=== PATIENT | male | born 1980 | race Caucasian/White ===

== ENCOUNTER 2017-04-09 17:38 | Inpatient (IN) | payer MEDICARE, OTHER ==
[~2017-04-09] VITALS: Ht 175.3 cm; Wt 81.0 kg
[~2017-04-09 17:38] MED LIST: HYDR-1666; LORA-408; PERCOCET
[2017-04-09] MEDS ORDERED: LEVETIRACETAM 1000 MG (PMX) 100 ML IVPB STA (17:46)
[2017-04-09] MEDS ORDERED: SOD CHLORIDE 0.9% 1,000 ML IV STA (17:46)
[2017-04-09] MEDS ORDERED: ONDANSETRON 4 MG INJ IV STA (17:46)
[2017-04-09 18:02] LABS: ADD SCAN DIFF NO
[2017-04-09 18:03] LABS: BASOPHILS % 0.2 % (0.0-2.0); EOSINOPHILS # 0.1 10^3/ul (0.0-0.5); EOSINOPHILS % 2.1 % (0.0-7.0); HEMATOCRIT 41.5 % (42.0-52.0); HEMOGLOBIN 14.7 g/dl (14.0-18.0); LYMPHOCYTES # 1.5 10^3/ul (0.8-2.9); LYMPHOCYTES % 28.3 % (15.0-51.0); MEAN CORPUSCULAR HGB CONC 35.4 g/dl (32.0-37.0); MEAN CORPUSCULAR VOLUME 87.6 fl (82.0-101.0); MEAN PLATELET VOLUME 10.5 fl (7.4-10.4); MONOCYTE # 0.5 10^3/ul (0.3-0.9); NEUTROPHIL # 3.1 10^3/ul (1.6-7.5); PLATELET COUNT 153 10^3/UL (140-415); RED BLOOD COUNT 4.74 10^6/ul (4.70-6.10); RED CELL DISTRIBUTION WIDTH 11.8 % (11.5-14.5); WHITE BLOOD COUNT 5.1 10^3/ul (4.8-10.8)
[2017-04-09 18:22] LABS: CALCIUM 9.4 mg/dl (8.4-10.2); CREATININE 0.88 mg/dl (0.61-1.24); POTASSIUM 3.8 mmol/L (3.5-5.1)
[2017-04-09] MEDS ORDERED: LACO150T2 PO (18:38)
[2017-04-09] MEDS ORDERED: SERT-165 PO (18:38)
[2017-04-09] MEDS ORDERED: SERT50TA PO (18:39)
[2017-04-09] MEDS ORDERED: METO50TA16 PO (18:39)
[2017-04-09] MEDS ORDERED: DIVA250T4 PO (18:40)
[2017-04-09] MEDS ORDERED: TRAZ100T15 PO (18:50)
--- NOTE | 2017-04-09 20:21 | ERA ---
ER Documentation Chief Complaint Date/Time DATE: 04/09/17 TIME: 20:20 Chief Complaint seizures x 3 (10 sec's each), hx absent seizures HPI This 28-year-old male brought in by paramedics for a witnessed seizure on [employer] van, which provides free medical transportation for qualified individuals. This seizure was reported shaking. Patient has a history of absence seizures. He is on Vimpat. Paramedics administered 2 doses of Versed to try to stop the seizures as he then sees to 3 times in their presence. He is currently postictal and not able to provide his own history. History to this point has been taken from paramedics. ROS Unable to provide history. Medications Home Meds Reported Medications Trazodone Hcl* (Trazodone Hcl*) 100 Mg Tablet, 200 MG PO QHS, #30 TAB 04/09/17 Divalproex Sodium* (Depakote ER*) 250 Mg Tabsr, 250 MG PO QHS, #30 TAB.SA 04/09/17 Metoprolol Succinate* (Toprol XL*) 50 Mg Tab.er.24h, 50 MG PO DAILY, #30 TAB 04/09/17 Lacosamide (Vimpat) 150 Mg Tablet, 150 MG PO BID, TAB 04/09/17 Sertraline Hcl* (Sertraline Hcl*) 100 Mg Tablet, 200 MG PO DAILY, #60 TAB 04/09/17 Discontinued Reported Medications Sertraline Hcl* (Zoloft*) 50 Mg Tablet, 50 MG PO DAILY, #30 TAB 04/09/17 Lorazepam (Ativan) 1 Mg Tablet 06/13/10 Hydrocodone Bit/Acetaminophen (Vicodin 5/500 Tablet) 1 Tab Tablet 06/13/10 Oxycodone Hcl/Acetaminophen (Percocet) 1 Tab Tab 06/13/10 Allergies Allergies: Coded Allergies: haloperidol (Verified Allergy, Severe, GRAND MAL SEIZURE, 04/09/17) PMhx/Soc History of Surgery: No Anesthesia Reaction: No Hx Neurological Disorder: No Hx Respiratory Disorders: No Hx Cardiac Disorders: No Hx Psychiatric Problems: Yes (DEPRESSION) Hx Miscellaneous Medical Probl: Yes (SEIZURES ) Hx Alcohol Use: No Hx Substance Use: No Hx Tobacco Use: No Smoking Status: Never smoker Physical Exam Vitals Vital Signs Date Time Temp Pulse Resp B/P Pulse Ox O2 Delivery O2 Flow Rate FiO2 04/09/17 19:24 101 18 130/79 99 Nasal Cannula 3.0 04/09/17 17:45 98.1 78 16 127/77 97 Physical Exam Const: [] No obvious distress Head: Atraumatic Eyes: Normal Conjunctiva, apparent EOMI, PERRL ENT: Normal External Ears, Nose and Mouth. Neck: Full range of motion..~ No meningismus. Resp: Clear to auscultation bilaterally Cardio: Regular rate and rhythm, no murmurs Abd: Soft, non tender, non distended. Normal bowel sounds Skin: No petechiae or rashes Back: No midline or flank tenderness Ext: No cyanosis, or edema Neur: Awake and alert, patient is postictal currently unable to cooperate with the neuro exam. He is looking around with no gaze preference to either side.. Result Diagram: 04/09/17175404/09/171754 Results 24 hrs Laboratory Tests Test 04/09/17 17:55 White Blood Count 5.110^3/ul Red Blood Count 4.7410^6/ul Hemoglobin 14.7g/dl Hematocrit 41.5% Mean Corpuscular Volume 87.6fl Mean Corpuscular Hemoglobin 31.0pg Mean Corpuscular Hemoglobin Concent 35.4g/dl Red Cell Distribution Width 11.8% Platelet Count 49483^3/UL Mean Platelet Volume 10.5fl Neutrophils % 60.0% Lymphocytes % 28.3% Monocytes % 9.0% Eosinophils % 2.1% Basophils % 0.2% Nucleated Red Blood Cells % 0.0/100WBC Neutrophils # 3.110^3/ul Lymphocytes # 1.510^3/ul Monocytes # 0.510^3/ul Eosinophils # 0.110^3/ul Basophils # 0.010^3/ul Nucleated Red Blood Cells # 0.010^3/ul Sodium Level 137mmol/L Potassium Level 3.8mmol/L Chloride Level 103mmol/L Carbon Dioxide Level 27mmol/L Anion Gap 11 Blood Urea Nitrogen 14mg/dl Creatinine 0.88mg/dl Glucose Level 89mg/dl Calcium Level 9.4mg/dl Current Medications Medications (Trade) Dose Ordered Sig/Raya Route PRN Reason Start Time Stop Time Status Last Admin Dose Admin Sodium Chloride 1,000 ml @ 1,000 mls/hr Q1H STAT IV 04/09/17 17:46 5/17/17 18:45 DC 04/09/17 18:03 Levetiracetam (Keppra 1,000mg/ 100ml (Pmx)) 100 ml @ 400 mls/hr ONCE STAT IVPB 04/09/17 17:46 04/09/17 18:00 DC 04/09/17 18:43 Ondansetron HCl (Zofran Inj) 4 mg ONCE STAT IV 04/09/17 17:46 04/09/17 17:51 DC 04/09/17 18:03 Ondansetron HCl (Zofran Inj) 4 mg ER BRIDGE PRN IV NAUSEA AND/OR VOMITING 04/09/17 20:30 04/10/17 20:29 Acetaminophen (Tylenol Tab) 650 mg ER BRIDGE PRN PO MILD PAIN/FEVER 04/09/17 20:30 04/10/17 20:29 Procedures/MDM Status epilepticus with multiple seizures requiring 2 doses of benzodiazepines in order to stop the seizures. Patient then had a prolonged postictal period in the emergency room. He was immediately given a loading dose of Keppra 1 g IV. He has not had further seizures in the emergency room I believe is appropriate for telemetry. Because he is having breakthrough seizures with such frequency today I believe he needs to be admitted for the status epilepticus. Paramedics denied any known trauma in the patient later denied trauma. He was postictal for approximately 2 hours and was intermittently able to answer questions. When he awoke he exhibited drug-seeking behavior and saying that he needs Dilaudid for a headache that he has. He has asked multiple times for Dilaudid. I did provide him with IV diclofenac which did help with his headache. No sign of intracranial injury. No signs of infections that would lower seizure threshold. Spoke with . his son who admitting the patient to telemetry with seizure precautions. CT head interpretation: I see no acute process, no hemorrhage no mass-effect no midline shift, no skull fracture Departure Diagnosis: Primary Impression: Status epilepticus Additional Impressions: Postictal state Breakthrough seizure Condition: Stable LYLECLAIREJESUS DO April 09, 2017 20:21
[2017-04-09] MEDS ORDERED: ACETAMINOPHEN 325 MG TAB PO PRN (20:30)
[2017-04-09] MEDS ORDERED: ONDANSETRON 4 MG INJ IV PRN ×2 (20:30→23:00)
--- NOTE | 2017-04-09 20:35 | RADRPT ---
PROCEDURE: CT Head without. CLINICAL INDICATION: Seizure. TECHNIQUE: The study was performed utilizing a multi-slice, multidetector CT scanner. Direct spira l 1 mm axial sections were obtained through the head without the use of intravenous contrast materia l. 1 or more of the following dose reduction techniques were utilized: Automated exposure control, adjustment of the mA and/or kV according to patient's size, iterative reconstruction technique. Co freddy and sagittal reformations were obtained. The images were reviewed on a PACS workstation. RADIATION DOSE: CTDIvol: 45.0 mGyDLP: 720.2 mGy-cm COMPARISON: No prior studies are available for comparison. FINDINGS: There is no intracranial hemorrhage, extra-axial fluid collection, mass lesion, midline shift or hyd rocephalus. The ventricles, sulci and cisterns are within normal limits. 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 The white matter is unremarkable. The bustamante-white matter differentiation is preserved. The basal cisterns are patent. The midline structures are intact. The orbits, calvarium and extracranial soft tissues are normal in appearance. There is fluid opacifi cation of the bilateral mastoid air cells and middle ear cavities, with poorly pneumatized mastoid a ir cells bilaterally. IMPRESSION: 1. No acute intracranial abnormality. No intracranial hemorrhage, extra-axial fluid collection, ma ss lesion or hydrocephalous. RPTAT: HGAS .Matt Gallego MD, Date Time Electronically viewed and signed by .Matt Gallego MD, on 04/09/2017 20:34 .S/
[2017-04-09] MEDS ORDERED: DICLOFENAC SODIUM 37.5 MG/ML VIAL IV STA (20:49)
[2017-04-09 21:14] LABS: ADD UMIC NO; URINE BILIRUBIN (Dip) NEGATIVE (NEGATIVE); URINE BLOOD (Dip) NEGATIVE (NEGATIVE); URINE COLOR LT. YELLOW (YELLOW); URINE GLUCOSE (Dip) NEGATIVE (NEGATIVE); URINE KETONES (Dip) NEGATIVE (NEGATIVE); URINE LEUKOCYTE ESTERASE (Dip) NEGATIVE (NEGATIVE); URINE NITRITE (Dip) NEGATIVE (NEGATIVE); URINE TOTAL PROTEIN (Dip) NEGATIVE (NEGATIVE); URINE UROBILINOGEN (Dip) 0.2 E.U./dL (0.1-1.0)
[2017-04-09] MEDS ORDERED: DIPHENHYDRAMINE 50 MG INJ IM ONE (22:00)
[2017-04-09] MEDS ORDERED: OLANZAPINE 5 MG TAB PO ONE (22:30)
[2017-04-09] MEDS ORDERED: KETOROLAC 15 MG INJ IV PRN (23:00)
[2017-04-09] MEDS ORDERED: BISACODYL (EC) 5 MG TAB PO PRN (23:00)
[2017-04-09] MEDS ORDERED: DOCUSATE SODIUM 100 MG CAP PO PRN (23:00)
[2017-04-09] MEDS ORDERED: NACL 0.9% 3 ML SYG IV SCH (23:00)
[2017-04-09] MEDS: SOD CHLORIDE 0.9% 1,000 ML IV SCH (23:27)
[2017-04-09 23:51] VITALS: BP 110/65; RESP 18
[2017-04-10] VITALS (11 sets, daily range): BP systolic 94–123; BP diastolic 53–68; PULSE 55–73; RESP 18–20; Ht 175.3 cm; Wt 81.0 kg
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
[2017-04-10] MEDS: LEVETIRACETAM 500 MG TAB PO SCH ×3 (01:37→21:26)
[2017-04-10] MEDS: FAMOTIDINE 20 MG TAB PO SCH ×3 (01:37→21:26)
[2017-04-10] MEDS: LACOSAMIDE (100 MG/10 ML PO SYR) PO SCH ×3 (01:38→23:28)
[2017-04-10] MEDS: ACETAMINOPHEN 325 MG TAB PO PRN (01:38)
[2017-04-10 04:58] LABS: BARBITURATES NEGATIVE (NEGATIVE); BENZODIAZEPINES POSITIVE (NEGATIVE); CANNABINOIDS NEGATIVE (NEGATIVE); COCAINE NEGATIVE (NEGATIVE)
[2017-04-10 04:59] LABS: OPIATES NEGATIVE (NEGATIVE)
[2017-04-10 07:32] LABS: ADD SCAN DIFF NO
[2017-04-10 07:38] LABS: BASOPHILS % 0.5 % (0.0-2.0); EOSINOPHILS # 0.1 10^3/ul (0.0-0.5); EOSINOPHILS % 3.5 % (0.0-7.0); HEMATOCRIT 37.8 % (42.0-52.0); HEMOGLOBIN 12.6 g/dl (14.0-18.0); LYMPHOCYTES # 1.6 10^3/ul (0.8-2.9); LYMPHOCYTES % 40.8 % (15.0-51.0); MEAN CORPUSCULAR HEMOGLOBIN 30.2 pg (29.0-33.0); MEAN CORPUSCULAR HGB CONC 33.3 g/dl (32.0-37.0); MEAN CORPUSCULAR VOLUME 90.6 fl (82.0-101.0); MEAN PLATELET VOLUME 10.8 fl (7.4-10.4); MONOCYTE # 0.5 10^3/ul (0.3-0.9); MONOCYTES % 11.8 % (0.0-11.0); NEUTROPHIL # 1.7 10^3/ul (1.6-7.5); NEUTROPHILS % 43.1 % (39.0-77.0); PLATELET COUNT 142 10^3/UL (140-415); RED BLOOD COUNT 4.17 10^6/ul (4.70-6.10); RED CELL DISTRIBUTION WIDTH 12.1 % (11.5-14.5)
[2017-04-10 08:05] LABS: POTASSIUM 3.7 mmol/L (3.5-5.1)
[2017-04-10 08:07] LABS: BILIRUBIN,INDIRECT 0.2 mg/dl (0-1.1); BILIRUBIN,TOTAL 0.2 mg/dl (0.2-1.3); CREATININE 0.73 mg/dl (0.61-1.24)
[2017-04-10 08:08] LABS: ALBUMIN/GLOBULIN RATIO 1.25; CALCIUM 8.3 mg/dl (8.4-10.2); TOTAL PROTEIN 5.4 g/dl (6.1-8.1)
[2017-04-10] MEDS: METOPROLOL (XL) 50 MG TAB PO SCH (09:00)
[2017-04-10] MEDS: SERTRALINE 100 MG TAB PO SCH (09:16)
[2017-04-10] MEDS: LORAZEPAM 2 MG INJ IV PRN (11:21)
--- NOTE | 2017-04-10 15:22 | CONS ---
Date/Time of Note Date/Time of Note DATE: 04/10/17 TIME: 15:18 Assessment/Plan Assessment/Plan Chief Complaint/Hosp Course 36 year old male with reported history of seizures on 3 AED admitted w breakthrough seizures. -MRI Brain w/o contrast ordered -Routine EEG -resumed on AED will follow up with above testing and adjust medications as needed seizure precautions low dose ativan prn Problems: Consultation Date/Type/Reason Admit Date/Time 04/10/17 Date of Consultation: April 10, 2017 Type of Consultation: Neurology Reason for Consultation seizures Referring Provider: SUZY AYALA Hx of Present Illness 28 year old male with history of reported seizures on Depakote, Keppra, and Vimpat brought in for witnessed seizure while on [employer] van. He was given 2 doses of Versed and had 3 further seizures. He is unable to provide any hx regarding his seizures, complains of pain and headache requesting pain meds. He reports he is complaint with all meds, was restarted on Keppra 500 mg q12h, Vimpat 150 mg BID, Depakote 250 mg qhs. CTH is negative. MRI Brain and EEG pending. headaches Social History Alcohol Use: other (Previous drinker about 6 months ago) Smoking Status: Current every day smoker (1-2 cigarettes a day) Exam/Review of Systems Vital Signs Vitals Vital Signs Date Time Temp Pulse Resp B/P Pulse Ox O2 Delivery O2 Flow Rate FiO2 04/10/17 12:30 69 04/10/17 11:23 98.2 20 113/68 97 04/10/17 09:50 Nasal Cannula 2.0 Exam developmentally delayed slow to respond oriented to self, hospital, date no aphasia CN: NEVILLE, left eyelid w slight ptosis, no other sig. facial asymmetry palate upgoing uvula midline scm/trap intact while speaking with patient he reported he was having a seizure no gaze deviation or focal twitching or weakness observed Motor: lifts all extremities anti-gravity with full strength Coordination: no ataxia Reflexes 1+ throughout Results Result Diagram: 04/10/17 0643 04/10/17 0643 Results 24 hrs Laboratory Tests Test 04/09/17 17:55 04/09/17 20:30 04/10/17 02:20 04/10/17 06:43 White Blood Count 5.1 4.0 #L Red Blood Count 4.74 4.17 L Hemoglobin 14.7 12.6 L Hematocrit 41.5 L 37.8 L Mean Corpuscular Volume 87.6 90.6 Mean Corpuscular Hemoglobin 31.0 30.2 Mean Corpuscular Hemoglobin Concent 35.4 33.3 Red Cell Distribution Width 11.8 12.1 Platelet Count 153 142 Mean Platelet Volume 10.5 H 10.8 H Neutrophils % 60.0 43.1 Lymphocytes % 28.3 40.8 Monocytes % 9.0 11.8 H Eosinophils % 2.1 3.5 Basophils % 0.2 0.5 Nucleated Red Blood Cells % 0.0 0.0 Neutrophils # 3.1 1.7 Lymphocytes # 1.5 1.6 Monocytes # 0.5 0.5 Eosinophils # 0.1 0.1 Basophils # 0.0 0.0 Nucleated Red Blood Cells # 0.0 0.0 Sodium Level 137 142 Potassium Level 3.8 3.7 Chloride Level 103 107 Carbon Dioxide Level 27 26 Anion Gap 11 13 Blood Urea Nitrogen 14 12 Creatinine 0.88 0.73 Glucose Level 89 74 Calcium Level 9.4 8.3 L Urine Color LT. YELLOW Urine Clarity CLEAR Urine pH 6.0 Urine Specific [place] <=1.005 L Urine Ketones NEGATIVE Urine Nitrite NEGATIVE Urine Bilirubin NEGATIVE Urine Urobilinogen 0.2 E.U./dL Urine Leukocyte Esterase NEGATIVE Urine Hemoglobin NEGATIVE Urine Glucose NEGATIVE Urine Total Protein NEGATIVE Urine Opiates Screen NEGATIVE Urine Barbiturates NEGATIVE Urine Amphetamines Screen NEGATIVE Urine Benzodiazepines Screen POSITIVE Urine Cocaine Screen NEGATIVE Urine Cannabinoids NEGATIVE Magnesium Level 2.0 Total Bilirubin 0.2 Direct Bilirubin 0.00 Indirect Bilirubin 0.2 Aspartate Amino Transf (AST/SGOT) 20 Alanine Aminotransferase (ALT/SGPT) 30 Alkaline Phosphatase 30 L Total Protein 5.4 L Albumin 3.0 L Globulin 2.40 Albumin/Globulin Ratio 1.25 Valproic Acid (Depakene) Level < 10 L Medications Medications Current Medications Sodium Chloride (NS) 1,000 ml @ 50 mls/hr Q20H IV Last administered on 23:27; Admin Dose 50 MLS/HR; Start 04/09/17 at 22:49 Lorazepam (Ativan) 0.5 mg Q6H PRN IV ANXIETY Last administered on 04/10/17 11: 21; Admin Dose 0.5 MG; Start 04/09/17 at 23:00 Ondansetron HCl (Zofran Inj) 4 mg Q6H PRN IV NAUSEA AND/OR VOMITING; Start at 23:00 Acetaminophen (Tylenol Tab) 650 mg Q6H PRN PO PAIN LEVEL 1-3 OR FEVER Last administered on 04/10/17 01:38; Admin Dose 650 MG; Start 04/09/17 at 23:00 Docusate Sodium (Colace) 100 mg Q12H PRN PO CONSTIPATION; Start 04/09/17 at 23: 00 Bisacodyl (Dulcolax) 5 mg DAILY PRN PO CONSTIPATION; Start 04/09/17 at 23:00 Famotidine (Pepcid) 20 mg Q12 PO Last administered on 04/10/17 09:15; Admin Dose 20 MG; Start 04/09/17 at 23:00 Ketorolac Tromethamine (Toradol) 15 mg Q6H PRN IV PAIN Last administered on 09:17; Admin Dose 15 MG; Start 04/09/17 at 23:00; Stop 04/10/17 at 22:59 Levetiracetam (Keppra) 500 mg BID PO Last administered on 04/10/17 09:16; Admin Dose 500 MG; Start 04/10/17 at 00:12 Divalproex Sodium (Depakote Er) 250 mg QHS PO ; Start 04/10/17 at 21:00 Metoprolol Succinate (Toprol Xl) 50 mg DAILY PO ; Start 04/10/17 at 09:00 Sertraline HCl (Zoloft) 200 mg DAILY PO Last administered on 04/10/17 09:16; Admin Dose 200 MG; Start 04/10/17 at 09:00 Trazodone HCl (Desyrel) 200 mg QHS PO ; Start 04/10/17 at 21:00 Lacosamide (Vimpat Liq) 150 mg BID PO Last administered on 04/10/17 09:16; Admin Dose 150 MG; Start 04/10/17 at 00:30 AYUSH YANEZ MD April 10, 2017 15:22
[2017-04-10] MEDS: SOD CHLORIDE 0.9% 1,000 ML IV SCH (18:07)
[2017-04-10] MEDS: DIVALPROEX (ER) 250 MG TAB PO SCH (21:00)
[2017-04-10] MEDS: traZODone 100 MG TAB PO SCH (23:30)
[2017-04-11] VITALS (13 sets, daily range): BP systolic 100–124; BP diastolic 58–72; PULSE 67–81; RESP 16–20
[2017-04-11] MEDS: SOD CHLORIDE 0.9% 1,000 ML IV SCH (05:35)
[2017-04-11 07:24] LABS: ADD SCAN DIFF NO
[2017-04-11 07:38] LABS: BASOPHILS % 0.2 % (0.0-2.0); EOSINOPHILS # 0.2 10^3/ul (0.0-0.5); EOSINOPHILS % 2.9 % (0.0-7.0); HEMATOCRIT 40.1 % (42.0-52.0); HEMOGLOBIN 13.7 g/dl (14.0-18.0); LYMPHOCYTES # 1.6 10^3/ul (0.8-2.9); LYMPHOCYTES % 29.9 % (15.0-51.0); MEAN CORPUSCULAR HEMOGLOBIN 30.4 pg (29.0-33.0); MEAN CORPUSCULAR HGB CONC 34.2 g/dl (32.0-37.0); MEAN CORPUSCULAR VOLUME 88.9 fl (82.0-101.0); MEAN PLATELET VOLUME 10.4 fl (7.4-10.4); MONOCYTE # 0.4 10^3/ul (0.3-0.9); MONOCYTES % 6.7 % (0.0-11.0); NEUTROPHIL # 3.1 10^3/ul (1.6-7.5); NEUTROPHILS % 60.1 % (39.0-77.0); PLATELET COUNT 147 10^3/UL (140-415); RED BLOOD COUNT 4.51 10^6/ul (4.70-6.10); WHITE BLOOD COUNT 5.2 10^3/ul (4.8-10.8)
[2017-04-11 07:54] LABS: POTASSIUM 3.6 mmol/L (3.5-5.1)
[2017-04-11 07:55] LABS: MAGNESIUM 1.8 mg/dl (1.7-2.5)
[2017-04-11 07:57] LABS: CREATININE 0.8 mg/dl (0.61-1.24)
[2017-04-11 07:58] LABS: CALCIUM 8.8 mg/dl (8.4-10.2)
[2017-04-11] MEDS: SERTRALINE 100 MG TAB PO SCH (09:53)
[2017-04-11] MEDS: FAMOTIDINE 20 MG TAB PO SCH ×2 (09:53→21:17)
[2017-04-11] MEDS: LEVETIRACETAM 500 MG TAB PO SCH ×2 (09:53→21:17)
[2017-04-11] MEDS: METOPROLOL (XL) 50 MG TAB PO SCH (09:53)
[2017-04-11] MEDS: ACETAMINOPHEN 325 MG TAB PO PRN (09:54)
[2017-04-11] MEDS: LACOSAMIDE (100 MG/10 ML PO SYR) PO SCH ×2 (09:54→21:18)
--- NOTE | 2017-04-11 12:29 | SP ---
DATE OF PROCEDURE: 04/10/2017 HISTORY: The patient is a 36-year-old male with history of breakthrough seizures. CURRENT MEDICATIONS: 1. Keppra. 2. Vimpat. 3. Depakote. PROCEDURE: Utilizing a 16-channel EEG machine, cap scalp electrodes were applied in accordance with International 10-20 system. Cjkby-ci-xohiw and jtooh-jo-ycp montages were displayed. Electrical i mpedances were measured and reported. DESCRIPTION: During the resting state, a posterior dominant rhythm of about 8 to 9 Hz were seen bih emispherically. Photic stimulation had a good response. Hyperventilation was not performed. Left temporal sharps were noted at times during the tracing. IMPRESSION: This is an abnormal EEG because of presence of left temporal sharps which could be epil eptogenic. Please correlate these findings with the patient's clinical picture. Dictated By: MATTHEW CEVALLOS/LINDA Conf#: [id number] DID#: [id number]
--- NOTE | 2017-04-11 12:45 | CONS ---
Date/Time of Note Date/Time of Note DATE: 04/11/17 TIME: 12:42 Assessment/Plan Assessment/Plan Chief Complaint/Hosp Course Seizure disorder Problems: Additional Assessment/Plan 28 year old male with history of reported seizures on Depakote, Keppra, and Vimpat brought in for witnessed seizure while on [employer]ESS van. He was given 2 doses of Versed and had 3 further seizures. He is unable to provide any hx regarding his seizures, complains of pain and headache requesting pain meds. He reports he is complaint with all meds, was restarted on Keppra 500 mg q12h, Vimpat 150 mg BID, Depakote 250 mg qhs. CTH is negative. MRI Brain and EEG pending. Also complaints of headaches. EEG is abnormal showing left temporal sharps. PLAN: -MRI Brain w/o contrast ordered -Continue Keppra and Lacosamide seizure precautions low dose ativan prn Consultation Date/Type/Reason Admit Date/Time April 09, 2017 at 20:20 Initial Consult Date 04/10/17 Type of Consultation: Neurology Referring Provider: SUZY AYALA 24 HR Interval Summary Free Text/Dictation Doing well. MRI of brain is pending. EEG is abnormal showing left temporal sharps. Exam/Review of Systems Vital Signs Vitals Vital Signs Date Time Temp Pulse Resp B/P Pulse Ox O2 Delivery O2 Flow Rate FiO2 04/11/17 11:09 99.1 88 17 124/65 96 04/11/17 08:00 Nasal Cannula 2.0 Intake and Output 04/10/17 04/10/17 04/11/17 15:00 23:00 07:00 Intake Total 800 ml 1750 ml Output Total 600 ml 600 ml Balance 200 ml 1150 ml Exam Constitutional: alert, oriented, well developed Psych: nl mood/affect, no complaints Head: atraumatic, normocephalic Eyes: EOMI, nl conjunctiva, nl lids, nl sclera ENMT: mucosa pink and moist, nl external ears & nose, nl lips & teeth Neck: non-tender, supple Respiratory: clear to auscultation, normal air movement Cardiovascular: nl pulses, regular rate and rhythm Gastrointestinal: nl liver, spleen, non-tender, soft Musculoskeletal: nl extremities to inspection, nl gait and stance Extremities: normal pulses Neurological: RIGHT OF WAY CUTTER II-XII intact, nl mental status, nl speech, nl strength Skin: nl turgor, rash or lesions Lymph: nl lymph nodes Results Result Diagram: 04/11/17 0658 04/11/17 0658 Results 24 hrs Laboratory Tests Test 04/11/17 06:58 White Blood Count 5.2 # Red Blood Count 4.51 L Hemoglobin 13.7 L Hematocrit 40.1 L Mean Corpuscular Volume 88.9 Mean Corpuscular Hemoglobin 30.4 Mean Corpuscular Hemoglobin Concent 34.2 Red Cell Distribution Width 12.0 Platelet Count 147 Mean Platelet Volume 10.4 Neutrophils % 60.1 Lymphocytes % 29.9 Monocytes % 6.7 Eosinophils % 2.9 Basophils % 0.2 Nucleated Red Blood Cells % 0.0 Neutrophils # 3.1 Lymphocytes # 1.6 Monocytes # 0.4 Eosinophils # 0.2 Basophils # 0.0 Nucleated Red Blood Cells # 0.0 Sodium Level 142 Potassium Level 3.6 Chloride Level 106 Carbon Dioxide Level 27 Anion Gap 13 Blood Urea Nitrogen 12 Creatinine 0.80 Glucose Level 77 Calcium Level 8.8 Phosphorus Level 3.0 Magnesium Level 1.8 Medications Medications Current Medications Sodium Chloride (NS) 1,000 ml @ 50 mls/hr Q20H IV Last administered on 05:35; Admin Dose 50 MLS/HR; Start 04/09/17 at 22:49 Lorazepam (Ativan) 0.5 mg Q6H PRN IV ANXIETY Last administered on 04/10/17 11: 21; Admin Dose 0.5 MG; Start 04/09/17 at 23:00 Ondansetron HCl (Zofran Inj) 4 mg Q6H PRN IV NAUSEA AND/OR VOMITING; Start at 23:00 Acetaminophen (Tylenol Tab) 650 mg Q6H PRN PO PAIN LEVEL 1-3 OR FEVER Last administered on 04/11/17 09:54; Admin Dose 650 MG; Start 04/09/17 at 23:00 Docusate Sodium (Colace) 100 mg Q12H PRN PO CONSTIPATION Last administered on 09:53; Admin Dose 100 MG; Start 04/09/17 at 23:00 Bisacodyl (Dulcolax) 5 mg DAILY PRN PO CONSTIPATION; Start 04/09/17 at 23:00 Famotidine (Pepcid) 20 mg Q12 PO Last administered on 04/11/17 09:53; Admin Dose 20 MG; Start 04/09/17 at 23:00 Levetiracetam (Keppra) 500 mg BID PO Last administered on 04/11/17 09:53; Admin Dose 500 MG; Start 04/10/17 at 00:12 Divalproex Sodium (Depakote Er) 250 mg QHS PO Last administered on 04/10/17 21 :00; Admin Dose 250 MG; Start 04/10/17 at 21:00 Metoprolol Succinate (Toprol Xl) 50 mg DAILY PO Last administered on 04/11/17 09:53; Admin Dose 50 MG; Start 04/10/17 at 09:00 Sertraline HCl (Zoloft) 200 mg DAILY PO Last administered on 04/11/17 09:53; Admin Dose 200 MG; Start 04/10/17 at 09:00 Trazodone HCl (Desyrel) 200 mg QHS PO Last administered on 04/10/17 23:30; Admin Dose 200 MG; Start 04/10/17 at 21:00 Lacosamide (Vimpat Liq) 150 mg BID PO Last administered on 04/11/17 09:54; Admin Dose 150 MG; Start 04/10/17 at 00:30 Procedures Procedures 04/09/17 MATTHEW MENDIOLA MD April 11, 2017 12:45
[2017-04-11] MEDS: LORAZEPAM 2 MG INJ IV PRN ×2 (13:32→16:07)
--- NOTE | 2017-04-11 15:05 | PN ---
Date/Time of Note Date/Time of Note DATE: 04/11/17 TIME: 15:02 Assessment/Plan VTE Prophylaxis VTE Prophylaxis Intervention: SCD's Lines/Catheters IV Catheter Type (from Nrs): Saline Lock Urinary Cath still in place: No Assessment/Plan Assessment/Plan 1. Seizure disorder, medications adjusted, follow up with neurology 2. Major depression, on antidepressant Subjective 24 Hr Interval Summary Free Text/Dictation lethargic, may answer some simple questions Exam/Review of Systems Vital Signs Vitals Vital Signs Date Time Temp Pulse Resp B/P Pulse Ox O2 Delivery O2 Flow Rate FiO2 04/11/17 12:47 71 04/11/17 11:09 99.1 17 124/65 96 04/11/17 08:00 Nasal Cannula 2.0 Intake and Output 04/10/17 04/10/17 04/11/17 15:00 23:00 07:00 Intake Total 800 ml 1750 ml Output Total 600 ml 600 ml Balance 200 ml 1150 ml Exam Constitutional: other (lethargic) Head: atraumatic, normocephalic Eyes: EOMI, PERRL, nl conjunctiva, nl lids ENMT: nl external ears & nose, nl lips & teeth, nl nasal mucosa & septum Neck: non-tender, supple Respiratory: clear to auscultation, normal air movement, No congested cough, No crackles/rales, No diminished breath sounds, No intercostal retraction, No labored breathing, No other, No respirations, No tactile fremitus, No wheezing Cardiovascular: nl pulses, regular rate and rhythm, No S3, No S4, No bruits, No diastolic murmur, No edema, No gallop, No irregular rhythm, No jugular venous distention (JVD), No murmurs/extra sounds, No other, No rub, No systolic murmur Gastrointestinal: nl liver, spleen, non-tender, soft, No ascites, No bowel sounds, No distended, No firm, No hepatomegaly, No mass , No other, No rebound or guarding, No splenomegaly, No surgical scars, No tender Musculoskeletal: nl extremities to inspection Extremities: normal pulses, No calf tenderness, No clubbing, No cyanosis, No edema, No other, No palpable cord, No pitting pedal edema, No tenderness Neurological: TOP STOP ATTACHER II-XII intact, confused, lethargic, nl strength Skin: nl turgor Lymph: nl lymph nodes Results Result Diagram: 04/11/17 0658 04/11/17 0658 Results 24 hrs Laboratory Tests Test 04/11/17 06:58 White Blood Count 5.2 # Red Blood Count 4.51 L Hemoglobin 13.7 L Hematocrit 40.1 L Mean Corpuscular Volume 88.9 Mean Corpuscular Hemoglobin 30.4 Mean Corpuscular Hemoglobin Concent 34.2 Red Cell Distribution Width 12.0 Platelet Count 147 Mean Platelet Volume 10.4 Neutrophils % 60.1 Lymphocytes % 29.9 Monocytes % 6.7 Eosinophils % 2.9 Basophils % 0.2 Nucleated Red Blood Cells % 0.0 Neutrophils # 3.1 Lymphocytes # 1.6 Monocytes # 0.4 Eosinophils # 0.2 Basophils # 0.0 Nucleated Red Blood Cells # 0.0 Sodium Level 142 Potassium Level 3.6 Chloride Level 106 Carbon Dioxide Level 27 Anion Gap 13 Blood Urea Nitrogen 12 Creatinine 0.80 Glucose Level 77 Calcium Level 8.8 Phosphorus Level 3.0 Magnesium Level 1.8 Medications Medications Current Medications Sodium Chloride (NS) 1,000 ml @ 50 mls/hr Q20H IV Last administered on 05:35; Admin Dose 50 MLS/HR; Start 04/09/17 at 22:49 Lorazepam (Ativan) 0.5 mg Q6H PRN IV ANXIETY Last administered on 04/11/17 13: 32; Admin Dose 0.5 MG; Start 04/09/17 at 23:00 Ondansetron HCl (Zofran Inj) 4 mg Q6H PRN IV NAUSEA AND/OR VOMITING; Start at 23:00 Acetaminophen (Tylenol Tab) 650 mg Q6H PRN PO PAIN LEVEL 1-3 OR FEVER Last administered on 04/11/17 09:54; Admin Dose 650 MG; Start 04/09/17 at 23:00 Docusate Sodium (Colace) 100 mg Q12H PRN PO CONSTIPATION Last administered on 09:53; Admin Dose 100 MG; Start 04/09/17 at 23:00 Bisacodyl (Dulcolax) 5 mg DAILY PRN PO CONSTIPATION; Start 04/09/17 at 23:00 Famotidine (Pepcid) 20 mg Q12 PO Last administered on 04/11/17 09:53; Admin Dose 20 MG; Start 04/09/17 at 23:00 Levetiracetam (Keppra) 500 mg BID PO Last administered on 04/11/17 09:53; Admin Dose 500 MG; Start 04/10/17 at 00:12 Divalproex Sodium (Depakote Er) 250 mg QHS PO Last administered on 04/10/17 21 :00; Admin Dose 250 MG; Start 04/10/17 at 21:00 Metoprolol Succinate (Toprol Xl) 50 mg DAILY PO Last administered on 04/11/17 09:53; Admin Dose 50 MG; Start 04/10/17 at 09:00 Sertraline HCl (Zoloft) 200 mg DAILY PO Last administered on 04/11/17 09:53; Admin Dose 200 MG; Start 04/10/17 at 09:00 Trazodone HCl (Desyrel) 200 mg QHS PO Last administered on 04/10/17 23:30; Admin Dose 200 MG; Start 04/10/17 at 21:00 Lacosamide (Vimpat Liq) 150 mg BID PO Last administered on 04/11/17 09:54; Admin Dose 150 MG; Start 04/10/17 at 00:30 HUGO QUARLES MD April 11, 2017 15:05
--- NOTE | 2017-04-11 16:18 | RADRPT ---
PROCEDURE: MR Brain without contrast. CLINICAL INDICATION: Status epilepticus. TECHNIQUE: An MRI of the brain was performed on a GE short bore high-definition scanner utilizing the following sequences: Sagittal and axial T1 weighted, axial T2 weighted, thin section coronal T1- weighted SPGR and coronal FLAIR, axial diffusion weighted with ADC mapping, coronal GRE, and axial F LAIR. COMPARISON: CT brain from 04/09/2017 FINDINGS: No diffusion weighted abnormalities are seen to suggest the presence of acute ischemia or recent inf arct. Minimal white matter disease in the periventricular and deep white matter is seen. A partial cavum septum pellucidum is seen.No hypointense signal abnormalities are seen on the GRE images to s uggest the presence of blood degradation products. There is no evidence of intracranial hemorrhage, mass effect, or midline shift. No extra-axial fluid collections are seen. The ventricles and sulci are normal in size and configuration. The signal intensity is normal throughout the cerebrum, brain stem, and cerebellum. The medial temporal lobes are bilaterally symmetric and normal in appearance. Normal flow voids are visible in the proximal intracranial arteries and dural sinuses, indicating patency. The visualized paranasal sinuses are grossly clear. IMPRESSION: 1. No acute intracranial pathology. 2. Minimal nonspecific white matter disease which may be seen in the setting of migraines. RPTAT: HPNM Physician Katharine Date Time Electronically viewed and signed by Physician Katharine on 04/11/2017 16:18 /
[2017-04-11] MEDS: DIVALPROEX (ER) 250 MG TAB PO SCH (21:17)
[2017-04-11] MEDS: traZODone 100 MG TAB PO SCH (21:18)
[2017-04-12] VITALS (9 sets, daily range): BP systolic 94–152; BP diastolic 54–89; PULSE 65–79; RESP 17–20
[2017-04-12] MEDS: LORAZEPAM 2 MG INJ IV PRN ×2 (09:18→15:20)
[2017-04-12] MEDS: SERTRALINE 100 MG TAB PO SCH (09:19)
[2017-04-12] MEDS: METOPROLOL (XL) 50 MG TAB PO SCH (09:19)
[2017-04-12] MEDS: LEVETIRACETAM 500 MG TAB PO SCH (09:19)
[2017-04-12] MEDS: FAMOTIDINE 20 MG TAB PO SCH (09:19)
[2017-04-12] MEDS: ACETAMINOPHEN 325 MG TAB PO PRN (09:28)
[2017-04-12] MEDS: LACOSAMIDE (100 MG/10 ML PO SYR) PO SCH (09:29)
--- NOTE | 2017-04-12 09:45 | PN ---
Date/Time of Note Date/Time of Note DATE: 04/12/17 TIME: 09:42 Assessment/Plan VTE Prophylaxis VTE Prophylaxis Intervention: SCD's Lines/Catheters [facility]from [facility] Saline [facility] Urinary Cath still in place: No Assessment/Plan Chief Complaint/Hosp Course Assessment and plan 1. Seizure disorder. Patient did have MRI of the brain that showed no acute intracranial pathology. There was seen some minimal white matter disease. EEG of the brain also showed some abnormality because of the presence of temporal sharps suspect registration representative of epileptogenic. Continue on Depakote for now. Await for clinical improvement 2. History of major depression. Patient to be continued on antidepressant medication Disposition and plan: Await for clinical improvement of seizure disorder. Discharge when medically stable and cleared by consultants Discussed plan of care with Dr. Villar Problems: Subjective 24 Hr Interval Summary Free Text/Dictation Seen shaking bedrail with his right arm. He is somewhat alert to verbal stimulus but no appreciable comprehensible communication back. Exam/Review of Systems Vital Signs Vitals Vital Signs Date Time Temp Pulse Resp B/P Pulse Ox O2 Delivery O2 Flow Rate FiO2 04/12/17 08:36 75 04/12/17 07:21 98.1 18 120/71 95 04/11/17 22:55 Nasal Cannula 2.0 Intake and Output 04/11/17 04/11/17 04/12/17 14:59 22:59 06:59 Intake Total 500 ml 400 ml Output Total 750 ml Balance -250 ml 400 ml Exam Constitutional: alert, other (Nonverbal) Neck: supple, No jvd Respiratory: clear to auscultation, normal air movement Cardiovascular: regular rate and rhythm Gastrointestinal: non-tender, soft Musculoskeletal: No swelling Extremities: normal pulses Neurological: confused Results Result Diagram: 04/11/1758 04/11/17657 Medications Medications Current Medications Sodium Chloride (NS) 1,000 ml @ 50 mls/hr Q20H IV Last administered on 05:35; Admin Dose 50 MLS/HR; Start 04/09/17 at 22:49 Lorazepam (Ativan) 0.5 mg Q6H PRN IV ANXIETY Last administered on 04/12/17 09: 18; Admin Dose 0.5 MG; Start 04/09/17 at 23:00 Ondansetron HCl (Zofran Inj) 4 mg Q6H PRN IV NAUSEA AND/OR VOMITING; Start at 23:00 Acetaminophen (Tylenol Tab) 650 mg Q6H PRN PO PAIN LEVEL 1-3 OR FEVER Last administered on 04/12/17 09:28; Admin Dose 650 MG; Start 04/09/17 at 23:00 Docusate Sodium (Colace) 100 mg Q12H PRN PO CONSTIPATION Last administered on 09:53; Admin Dose 100 MG; Start 04/09/17 at 23:00 Bisacodyl (Dulcolax) 5 mg DAILY PRN PO CONSTIPATION; Start 04/09/17 at 23:00 Famotidine (Pepcid) 20 mg Q12 PO Last administered on 04/12/17 09:19; Admin Dose 20 MG; Start 04/09/17 at 23:00 Levetiracetam (Keppra) 500 mg BID PO Last administered on 04/12/17 09:19; Admin Dose 500 MG; Start 04/10/17 at 00:12 Divalproex Sodium (Depakote Er) 250 mg QHS PO Last administered on 04/11/17 21 :17; Admin Dose 250 MG; Start 04/10/17 at 21:00 Metoprolol Succinate (Toprol Xl) 50 mg DAILY PO Last administered on 04/12/17 09:19; Admin Dose 50 MG; Start 04/10/17 at 09:00 Sertraline HCl (Zoloft) 200 mg DAILY PO Last administered on 04/12/17 09:19; Admin Dose 200 MG; Start 04/10/17 at 09:00 Trazodone HCl (Desyrel) 200 mg QHS PO Last administered on 04/11/17 21:18; Admin Dose 200 MG; Start 04/10/17 at 21:00 Lacosamide (Vimpat Liq) 150 mg BID PO Last administered on 04/12/17 09:29; Admin Dose 150 MG; Start 04/10/17 at 00:30 DONALD HENRY April 12, 2017 09:45
[2017-04-12] MEDS: SOD CHLORIDE 0.9% 1,000 ML IV SCH (10:49)
--- NOTE | 2017-04-12 13:07 | CONS ---
Date/Time of Note Date/Time of Note DATE: 04/12/17 TIME: 13:05 Assessment/Plan Assessment/Plan Chief Complaint/Hosp Course Seizure disorder Problems: Additional Assessment/Plan 28 year old male with history of reported seizures on Depakote, Keppra, and Vimpat brought in for witnessed seizure while on [employer] van. He was given 2 doses of Versed and had 3 further seizures. He is unable to provide any hx regarding his seizures, complains of pain and headache requesting pain meds. He reports he is complaint with all meds, was restarted on Keppra 500 mg q12h, Vimpat 150 mg BID, Depakote 250 mg qhs. CTH is negative. MRI Brain showed nothing acute. EEG is abnormal showing left temporal sharps. PLAN: -Continue Keppra and Lacosamide seizure precautions low dose ativan prn Okay to DC home and follow-up as an outpatient Consultation Date/Type/Reason Admit Date/Time April 09, 2017 at 20:20 Initial Consult Date 04/10/17 Type of Consultation: Neurology Referring Provider: SUZY AYALA 24 HR Interval Summary Free Text/Dictation He has been doing well. Reported an episode of seizure activity this morning and he was talking and was drinking water during this episode. MRI of the brain did not show anything acute. Exam/Review of Systems Vital Signs Vitals Vital Signs Date Time Temp Pulse Resp B/P Pulse Ox O2 Delivery O2 Flow Rate FiO2 04/12/17 12:24 65 04/12/17 11:17 98.6 19 152/89 97 04/11/17 22:55 Nasal Cannula 2.0 Intake and Output 04/11/17 04/11/17 04/12/17 15:00 23:00 07:00 Intake Total 500 ml 400 ml Output Total 750 ml Balance -250 ml 400 ml Exam Constitutional: alert, oriented, well developed Psych: nl mood/affect, no complaints Head: atraumatic, normocephalic Eyes: EOMI, nl conjunctiva, nl lids, nl sclera ENMT: mucosa pink and moist, nl external ears & nose, nl lips & teeth, nl nasal mucosa & septum Neck: non-tender, supple Respiratory: clear to auscultation, normal air movement Cardiovascular: nl pulses, regular rate and rhythm Gastrointestinal: nl liver, spleen, non-tender, soft Extremities: normal pulses Neurological: BALE STACKER II-XII intact, nl mental status, nl speech, nl strength Results Result Diagram: 04/11/1758 04/11/17657 Medications Medications Current Medications Sodium Chloride (NS) 1,000 ml @ 50 mls/hr Q20H IV Last administered on 05:35; Admin Dose 50 MLS/HR; Start 04/09/17 at 22:49 Lorazepam (Ativan) 0.5 mg Q6H PRN IV ANXIETY Last administered on 04/12/17 09: 18; Admin Dose 0.5 MG; Start 04/09/17 at 23:00 Ondansetron HCl (Zofran Inj) 4 mg Q6H PRN IV NAUSEA AND/OR VOMITING; Start at 23:00 Acetaminophen (Tylenol Tab) 650 mg Q6H PRN PO PAIN LEVEL 1-3 OR FEVER Last administered on 04/12/17 09:28; Admin Dose 650 MG; Start 04/09/17 at 23:00 Docusate Sodium (Colace) 100 mg Q12H PRN PO CONSTIPATION Last administered on 09:53; Admin Dose 100 MG; Start 04/09/17 at 23:00 Bisacodyl (Dulcolax) 5 mg DAILY PRN PO CONSTIPATION; Start 04/09/17 at 23:00 Famotidine (Pepcid) 20 mg Q12 PO Last administered on 04/12/17 09:19; Admin Dose 20 MG; Start 04/09/17 at 23:00 Levetiracetam (Keppra) 500 mg BID PO Last administered on 04/12/17 09:19; Admin Dose 500 MG; Start 04/10/17 at 00:12 Divalproex Sodium (Depakote Er) 250 mg QHS PO Last administered on 04/11/17 21 :17; Admin Dose 250 MG; Start 04/10/17 at 21:00 Metoprolol Succinate (Toprol Xl) 50 mg DAILY PO Last administered on 04/12/17 09:19; Admin Dose 50 MG; Start 04/10/17 at 09:00 Sertraline HCl (Zoloft) 200 mg DAILY PO Last administered on 04/12/17 09:19; Admin Dose 200 MG; Start 04/10/17 at 09:00 Trazodone HCl (Desyrel) 200 mg QHS PO Last administered on 04/11/17 21:18; Admin Dose 200 MG; Start 04/10/17 at 21:00 Lacosamide (Vimpat Liq) 150 mg BID PO Last administered on 04/12/17 09:29; Admin Dose 150 MG; Start 04/10/17 at 00:30 Procedures Procedures MRI of the brain 04/11/2017 IMPRESSION: 1. No acute intracranial pathology. 2. Minimal nonspecific white matter disease which may be seen in the setting of migraines. RPTAT: HPNM Physician Katharine Date Time Electronically viewed and signed by Armani Javier, Physician on 04/11/2017 16 :18 MATTHEW MENDIOLA MD April 12, 2017 13:07
[2017-04-12] MEDS ORDERED: LEVE-5 PO (14:01)
[2017-04-12] MEDS ORDERED: LACO10SO PO (14:01)
[2017-04-12] MEDS ORDERED: DIVA250T4 PO (14:01)
[2017-04-12] MEDS ORDERED: METO50TA16 PO (14:01)
[2017-04-12] MEDS ORDERED: SERT-165 PO (14:01)
--- NOTE | 2017-04-12 14:04 | PDOCDIS ---
Discharge Instructions DIAGNOSIS Discharge Diagnosis: 1. Seizure 2. Depression CONDITION Patient Condition: Stable HOME CARE INSTRUCTIONS: Special Diet: regular FOLLOW UP/APPOINTMENTS Appointments 1. Follow up with Dr. Ritika Hogan in 1 week DONALD HENRY April 12, 2017 14:04
--- NOTE | 2017-04-12 17:01 | DS ---
Date/Time of Note Date/Time of Note DATE: 04/12/17 TIME: 16:57 Discharge Summary Admission/Discharge Info Admit Date/Time April 09, 2017 at 20:20 Discharge Date/Time Final Diagnosis 1. Seizure disorder 2. Depression Patient Condition: Stable Consults 1. Dr. Ritika Hogan Hospital Course This is a 28-year-old male who came to [facility] due to weakness procedure witnessed seizure. Patient does have history of absent seizures and currently takes Vimpat as well as Depakote. He was given 2 doses of Versed to stop seizures as he had sees 3 times in the ER. Patient was seen by neurologist. He did have MRI of the brain that showed no acute intracranial pathology and only minimal nonspecific white matter disease that can also be seen in the setting of migraines. Additionally he had EEG done that was abnormal in the presence of left temporal sharps that could be epileptogenic. Patient was placed on Keppra for additional seizure control. He was also provided with Ativan as needed for seizure breakthrough. During his course of stay he did improve. He is otherwise optimized medically. He did have good control with seizure medication and was instructed for outpatient follow-up with neurologist. He is otherwise optimized medically and placed on antidepressants for his history of depression. During his course of stay he did improve. On the day of discharge patient was in stable condition Discussed plan of care with Dr. Villar Discharge process 40 minutes Home Meds Active Scripts Levetiracetam* (Keppra*) 500 Mg Tablet, 500 MG PO BID for 30 Days, TAB Prov:DONALD HENRY 04/12/17 Lacosamide (Vimpat) 10 Mg/1 Ml Solution, 150 MG PO BID for 30 Days Prov:DONALD HENRY 04/12/17 Divalproex Sodium* (Depakote ER*) 250 Mg Tabsr, 250 MG PO QHS for 30 Days, TAB Prov:DONALD HENRY 04/12/17 Metoprolol Succinate* (Toprol XL*) 50 Mg Tab.er.24h, 50 MG PO DAILY, #30 TAB Prov:DONALD HENRY 04/12/17 Sertraline Hcl* (Sertraline Hcl*) 100 Mg Tablet, 200 MG PO DAILY for 30 Days, TAB Prov:DONALD HENRY 04/12/17 Reported Medications Trazodone Hcl* (Trazodone Hcl*) 100 Mg Tablet, 200 MG PO QHS, #30 TAB 04/09/17 Discontinued Reported Medications Divalproex Sodium* (Depakote ER*) 250 Mg Tabsr, 250 MG PO QHS, #30 TAB.SA 04/09/17 Lacosamide (Vimpat) 150 Mg Tablet, 150 MG PO BID, TAB 04/09/17 Sertraline Hcl* (Zoloft*) 50 Mg Tablet, 50 MG PO DAILY, #30 TAB 04/09/17 Lorazepam (Ativan) 1 Mg Tablet 06/13/10 Hydrocodone Bit/Acetaminophen (Vicodin 5/500 Tablet) 1 Tab Tablet 06/13/10 Oxycodone Hcl/Acetaminophen (Percocet) 1 Tab Tab 06/13/10 Follow-up Plan CONDITION Patient Condition: Stable HOME CARE INSTRUCTIONS: Special Diet: regular FOLLOW UP/APPOINTMENTS Appointments 1. Follow up with Dr. Ritika Hogan in 1 week Primary Care Provider DONALD Chicas April 12, 2017 17:01
== END 2017-04-12 16:05 | disposition home health service (06) | DRG 101 ==
LOC: E/R 17:38 → MS4 20:20
PROVIDERS: ADMIT Family Medicine; ATTEND Family Medicine
PROC: 4A00X4Z Measurement of Central Nervous Electrical Activity, External Approach (ICD-10-PCS; principal; 2017-04-10)
DX: G40.909 Epilepsy, unspecified, not intractable, without status epilepticus (principal); F32.9 Major depressive disorder, single episode, unspecified; R51 Headache
CPT/HCPCS: 36415; 70450; 70551; 80048; 80053; 80164; 80307; 81003; 83735; 84100; 85025; 95819; 96372; 96374; 96375; J1200; J1953; J2060; J2405; J7030

== ENCOUNTER 2017-11-05 14:44 | Emergency (ER) | payer MEDICARE, OTHER ==
[~2017-11-05] VITALS: Ht 182.9 cm; Wt 79.0 kg
[~2017-11-05 14:44] MED LIST changes: +DIVA250T4 PO; -HYDR-1666; +LACO10SO PO; +LEVE-5 PO; -LORA-408; +METO-319 PO; -PERCOCET; +SERT-165 PO; +TRAZ100T15 PO
[2017-11-05 14:51] VITALS: Ht 182.9 cm; Wt 79.0 kg
== END 2017-11-05 21:15 | disposition left against medical advice (07) ==
LOC: E/R 14:44
DX: Z53.21 Procedure and treatment not carried out due to patient leaving prior to being seen by health care provider (principal)